=== PATIENT | female | born 1980 | race Caucasian/White ===

== ENCOUNTER 2016-12-01 08:32 | Emergency (ER) | END 2016-12-01 09:45 | disposition home or self-care (01) | DX: A60.00 Herpesviral infection of urogenital system, unspecified (principal); I10 Essential (primary) hypertension; R10.2 Pelvic and perineal pain | CPT/HCPCS: 81003; 87591; 96372; J0696; Z7502; Z7610 ==

== ENCOUNTER 2017-03-17 22:21 | Emergency (ER) | payer OTHER ==
[~2017-03-17] VITALS: Ht 167.6 cm; Wt 94.5 kg
[~2017-03-17 22:21] MED LIST: ACYC400T2 PO; AZIT500T3 PO; BACTDS PO; CEPH-443 PO; FLUC150T17 PO; IBUP-1542 PO; LORA-441 PO
[2017-03-17 22:49] VITALS: Ht 167.6 cm; Wt 94.5 kg
[2017-03-18] MEDS ORDERED: ASPIRIN 325 MG TAB PO ONE
[2017-03-18] MEDS ORDERED: LORAZEPAM 2 MG INJ IV ONE
[2017-03-18] MEDS ORDERED: SOD CHLORIDE 0.9% 1,000 ML IV STA
[2017-03-18 00:01] VITALS: TEMP 98
--- NOTE | 2017-03-18 00:14 | ERD ---
ER Documentation Chief Complaint Chief Complaint CP today sudden onset, non-radiating. +SOB. -n/v. Pt seen by PMD. see note HPI This is a 36-year-old female with multiple complaints. She states for 1 month now she has had off-and-on episodes of her hands getting numb and sweaty and she feels like her blood sugar is getting low. Symptoms resolved eating some sweets. She also states she has had off-and-on left-sided arm and leg heaviness. She says this started at 3 AM yesterday morning. Apparently this has happened multiple times in the past. The friends at bedside states they called the ambulance "all the time" to come see her and take her to the hospital. The patient states that she had some difficulty breathing at 3 AM that was brief lasting a few minutes and resolved. She has never had any chest pain. No fever no cough. Patient is denying any undue stress. ROS All systems reviewed and are negative except as per history of present illness. Medications Home Meds Reported Medications Hydrocodone/Acetaminophen ([place] 5-325 Tablet) 1 Each Tablet, 1 EACH PO, TAB 03/18/17 Losartan Potassium* (Losartan Potassium*) 100 Mg Tablet, 100 MG PO DAILY, TAB 03/18/17 Amlodipine Besylate* (Amlodipine Besylate*) 2.5 Mg Tablet, 2.5 MG PO DAILY, #30 TAB 03/18/17 Hydrochlorothiazide* (Hydrochlorothiazide*) 25 Mg Tab, 25 MG PO DAILY, #30 TAB 03/18/17 Metoprolol Tartrate* (Lopressor*) 50 Mg Tab, 50 MG PO BID for HTN, #60 TAB 03/18/17 Lorazepam* (Lorazepam*) 1 Mg Tablet, 1 MG PO Q8 Y for ANXIETY, #60 TAB 03/18/17 Discontinued Scripts Acyclovir* (Acyclovir*) 400 Mg Tablet, 400 MG PO QID for 7 Days, TAB Prov:GAVI BENAVIDES PA-C 12/01/16 Cephalexin* (Keflex*) 500 Mg Capsule, 500 MG PO QID for 5 Days, CAP Prov:SINCERE ARZATE PA-C 01/31/16 Fluconazole* (Diflucan*) 150 Mg Tablet, 150 MG PO ONCE, #1 TAB Prov:SINCERE ARZATE PA-C 01/31/16 Ibuprofen* (Motrin*) 600 Mg Tab, 600 MG PO Q8, #30 TAB Prov:MANAGUELOD,[place] P CLERICAL AIDE 12/29/15 Cephalexin* (Keflex*) 500 Mg Capsule, 500 MG PO QID for 7 Days, CAP Prov:MANAGUELOD,FLORENCE P CLERICAL AIDE 12/29/15 Sulfamethoxazole-Trimethoprim* (Bactrim* DS) 800-160 Mg Tab, 1 TAB PO BID for 10 Days, TAB Prov:MANAGUELOD,FLOR[place] P CLERICAL AIDE 12/29/15 Fluconazole* (Diflucan*) 150 Mg Tablet, 150 MG PO ONCE, #1 TAB Prov:EJ CAMPOS PA-C 11/30/15 Azithromycin* (Zithromax*) 500 Mg Tablet, 1000 MG PO ONCE, #1 TAB Prov:EJ CAMPOS PA-C 11/30/15 Lorazepam* (Ativan*) 0.5 Mg Tablet, 0.5 MG PO Q8, #15 TAB Prov:CHIQUI IRVING MD 09/23/15 Allergies Allergies: Coded Allergies: No Known Allergy (Unverified , 03/17/17) PMhx/Soc History of Surgery: No Anesthesia Reaction: No Hx Neurological Disorder: No Hx Respiratory Disorders: No Hx Cardiac Disorders: Yes (hypertension) Hx Psychiatric Problems: No Hx Miscellaneous Medical Probl: No Hx Alcohol Use: No Hx Substance Use: No Hx Tobacco Use: No Smoking Status: Never smoker FmHx Family History: No coronary disease Physical Exam Vitals Vital Signs Date Time Temp Pulse Resp B/P Pulse Ox O2 Delivery O2 Flow Rate FiO2 03/18/17 00:01 98.0 81 18 181/110 100 Room Air 03/17/17 22:49 98.1 65 18 160/100 98 Physical Exam Const: Well-developed, well-nourished Head: Atraumatic, normocephalic Eyes: Normal Conjunctiva, PERRLA, EOMI, normal sclera, no nystagmus ENT: Normal External Ears, Nose and Mouth, moist mucus membranes. Neck: Full range of motion. No meningismus, no lymphadenopathy. Resp: Clear to auscultation bilaterally, no wheezing, rhonchi, rales Cardio: Regular rate and rhythm, no murmurs, S1 S2 present Abd: Soft, non tender x 4, non distended. Normal bowel sounds, no guarding or rebound, no pulsitile abdominal masses or bruits Skin: No petechiae or rashes, no ecchymosis , no maculopapular rash Back: No midline or flank tenderness Ext: No cyanosis, or edema, FROM x 4, normal inspection, neurovascularly intact x 4 Neur: Awake and alert, STR 5/5 x 4,, patient has subjective heaviness on the left arm and leg sensation intact x 4, no focal findings, cerebellum intact Psych: Normal Mood and Affect Result Diagram: 03/17/176 03/17/172355 Results 24 hrs Laboratory Tests Test 03/17/17 23:56 03/18/17 00:04 White Blood Count 9.010^3/ul Red Blood Count 4.4810^6/ul Hemoglobin 12.8g/dl Hematocrit 38.6% Mean Corpuscular Volume 86.2fl Mean Corpuscular Hemoglobin 28.6pg Mean Corpuscular Hemoglobin Concent 33.2g/dl Red Cell Distribution Width 13.5% Platelet Count 90747^3/UL Mean Platelet Volume 10.8fl Neutrophils % 68.1% Lymphocytes % 20.1% Monocytes % 7.7% Eosinophils % 2.4% Basophils % 0.7% Nucleated Red Blood Cells % 0.0/100WBC Neutrophils # 6.110^3/ul Lymphocytes # 1.810^3/ul Monocytes # 0.710^3/ul Eosinophils # 0.210^3/ul Basophils # 0.110^3/ul Nucleated Red Blood Cells # 0.010^3/ul Prothrombin Time 12.4Sec Prothrombin Time Ratio 1.0 INR International Normalized Ratio 0.92 Activated Partial Thromboplast Time 25.3Sec Sodium Level 138mmol/L Potassium Level 3.3mmol/L Chloride Level 102mmol/L Carbon Dioxide Level 29mmol/L Anion Gap 10 Blood Urea Nitrogen 16mg/dl Creatinine 0.71mg/dl Glucose Level 95mg/dl Calcium Level 8.9mg/dl Troponin I < 0.012ng/ml Bedside Glucose 94mg/dL Current Medications Medications (Trade) Dose Ordered Sig/Grady Route PRN Reason Start Time Stop Time Status Last Admin Dose Admin Sodium Chloride (NS) 1,000 ml @ 1,000 mls/hr Q1H STAT IV 03/18/17 00:00 03/18/17 00:59 DC 03/18/17 00:06 Lorazepam (Ativan) 1 mg ONCE ONCE IV 03/18/17 00:00 03/18/17 00:02 DC 03/18/17 00:06 Aspirin (Aspirin) 325 mg ONCE ONCE PO 03/18/17 00:00 03/18/17 00:02 DC 03/18/17 00:06 Acetaminophen (Tylenol Tab) 650 mg ONCE ONCE PO 03/18/17 01:52 03/18/17 01:53 DC 03/18/17 01:54 Acetaminophen (Tylenol Tab) 325 mg STK-MED ONCE .ROUTE 03/18/17 01:52 03/18/17 01:53 DC Procedures/MDM EKG: Rate/Rhythm: Normal sinus rhythm, LVH QRS, ST, QT: NORMAL TX, QRS, QT] Impression: NORMAL EKG Chest x-ray per radiology is normal Noncontrast CT scan of brain is normal per radiology The patient states she feels back to baseline. I discussed with her her findings. She says that this is the third time this has happened to her in the past 6 weeks and it always happens when she is asleep. She says she has been to outside ERs twice for this and they give her anxiety pills and that seems to work. Patient says she is out of her anxiety pills otherwise she will taken that and not come here. Jennifer is some type of stress reaction/anxiety reaction. Departure Diagnosis: Primary Impression: Stress reaction Additional Impression: Anxiety Condition: Stable IRMA ERICKSON DO Mar 18, 2017 00:14
[2017-03-18 00:18] LABS: BASOPHIL # 0.1 10^3/ul (0.0-0.1); BASOPHILS % 0.7 % (0.0-2.0); EOSINOPHILS # 0.2 10^3/ul (0.0-0.5); EOSINOPHILS % 2.4 % (0.0-7.0); HEMATOCRIT 38.6 % (37.0-47.0); HEMOGLOBIN 12.8 g/dl (12.0-16.0); LYMPHOCYTES # 1.8 10^3/ul (0.8-2.9); LYMPHOCYTES % 20.1 % (15.0-51.0); MEAN CORPUSCULAR HEMOGLOBIN 28.6 pg (29.0-33.0); MEAN CORPUSCULAR HGB CONC 33.2 g/dl (32.0-37.0); MEAN CORPUSCULAR VOLUME 86.2 fl (82.0-101.0); MEAN PLATELET VOLUME 10.8 fl (7.4-10.4); MONOCYTE # 0.7 10^3/ul (0.3-0.9); MONOCYTES % 7.7 % (0.0-11.0); NEUTROPHIL # 6.1 10^3/ul (1.6-7.5); NEUTROPHILS % 68.1 % (39.0-77.0); PLATELET COUNT 233 10^3/UL (140-415); RED BLOOD COUNT 4.48 10^6/ul (4.20-5.40); RED CELL DISTRIBUTION WIDTH 13.5 % (11.5-14.5)
[2017-03-18 00:43] LABS: ANION GAP 10 (8-16); BLOOD UREA NITROGEN 16 mg/dl (7-20); CALCIUM 8.9 mg/dl (8.4-10.2); CARBON DIOXIDE 29 mmol/L (21-31); CHLORIDE 102 mmol/L (97-110); CREATININE 0.71 mg/dl (0.44-1.00); GLUCOSE 95 mg/dl (70-220); POTASSIUM 3.3 mmol/L (3.5-5.1); SODIUM 138 mmol/L (135-144)
[2017-03-18 01:01] LABS: INR 0.92; PARTIAL THROMBOPLASTIN TIME 25.3 Sec (25.0-35.0); PROTIME 12.4 Sec (12.2-14.2)
[2017-03-18 01:04] LABS: TROPONIN-I < 0.012 ng/ml (0.00-0.12)
[2017-03-18] MEDS ORDERED: AMLO2.5T78 PO (01:06)
[2017-03-18] MEDS ORDERED: LOSA100T7 PO (01:06)
[2017-03-18] MEDS ORDERED: HYDR25TA6 PO (01:06)
[2017-03-18] MEDS ORDERED: METO-429 PO (01:06)
[2017-03-18] MEDS ORDERED: LORA1TAB PO ×2 (01:06→03:59)
[2017-03-18] MEDS ORDERED: HYDR-906 PO (01:06)
[2017-03-18] MEDS ORDERED: ACETAMINOPHEN 325 MG TAB PO ONE (01:52)
[2017-03-18] MEDS ORDERED: ACETAMINOPHEN 325 MG TAB ONE (01:52)
[2017-03-18 04:00] VITALS: BP 149/100; PULSE 62; RESP 18
--- NOTE | 2017-03-18 08:38 | RADRPT ---
PROCEDURE: XR Chest. CLINICAL INDICATION: Headache. TECHNIQUE: Single frontal view of the chest. COMPARISON: 09/23/2015. FINDINGS: The cardiomediastinal silhouette is within normal limits. The lungs are clear. No signs of pleural f luid or pneumothorax are seen. The osseous structures and soft tissues are unremarkable. IMPRESSION: No evidence for active cardiopulmonary disease. RPTAT: [facility]U Physician Du Date Time Electronically viewed and signed by Miquel Jones Physician on 03/18/2017 01:32 RS/
--- NOTE | 2017-03-18 08:39 | RADRPT ---
PROCEDURE: CT Brain without contrast. CLINICAL INDICATION: Headache TECHNIQUE: A CT of the brain was performed utilizing axial imaging from the skull base through the vertex without IV contrast. Multiplanar reformatted images were made. Images were reviewed on a [employer] workstation. The CTDIvol is 44.4 mGy and the DLP is 720.23 mGycm. One or more the following dose reduction techniques were utilized: Automated exposure control, adjus tment of the mA and / or kV according to patient's size, or use of iterative reconstruction techniqu e. COMPARISON: None FINDINGS: There is no intracranial hemorrhage, mass effect, or midline shift. No extra-axial fluid collection is seen. The ventricles and sulci are normal in size and configuration. The density of the brain is normal, and the saul white matter differentiation appears well-preserved. No skull fracture seen. There is appearance of a 7 mm retention cyst in posterior right sphenoid sinus. IMPRESSION: 1. No evidence of acute intracranial pathology. 2. The brain is normal in appearance. RPTAT: HJES .Laureano Villegas MD, Date Time Electronically viewed and signed by .Laureano Villegas MD, on 03/18/2017 02:45 .S/
== END 2017-03-18 04:10 | disposition home or self-care (01) ==
LOC: E/R 22:21
DX: F43.0 Acute stress reaction (principal); I10 Essential (primary) hypertension; R51 Headache
CPT/HCPCS: 36415; 70450; 71010; 80048; 82962; 84484; 85025; 85610; 85730; 93005; 96374; J2060; J7030; Z7502; Z7610

== ENCOUNTER 2018-12-29 07:43 | Day surgery (SDC) | payer OTHER ==
[2018-12-29] VITALS (19 sets, daily range): BP systolic 131–159; BP diastolic 74–100; PULSE 62–76; RESP 15–20; Ht 170.2 cm; Wt 97.7 kg
[~2018-12-29] VITALS: Ht 170.2 cm; Wt 97.7 kg
[~2018-12-29 07:43] MED LIST changes: -ACYC400T2 PO; +AMLO-145 ORAL; +AMLO2.5T78 PO; -AZIT500T3 PO; -BACTDS PO; -CEPH-443 PO; +DOCU-144 PO; -FLUC150T17 PO; +FLUO20CA22 ORAL; +HYDR-4011 PO; +HYDR25TA6 PO; -IBUP-1542 PO; -LORA-441 PO; +LORA0.5T ORAL; +LORA1TAB PO; +LOSA100T15 PO; +METO-429 PO; +ONDA8TAB9 PO; +SENN-120 PO; +TRAZ-150 ORAL
[2018-12-29] MEDS ORDERED: CEFAZOLIN 2 GM/50 ML (PMX) 50 ML IVPB ONE (09:30)
[2018-12-29] MEDS ORDERED: SOD CHLORIDE 0.9% 1,000 ML IV SCH (09:30)
--- NOTE | 2018-12-29 10:40 | PREAC ---
Date/Time of Note Date/Time of Note DATE: 12/29/18 TIME: 10:39 Anesthesia Eval and Record Evaluation Time Pre-Procedure Interview DATE: 12/29/18 TIME: 10:39 Age 38 Sex female NPO: 8 hrs Preoperative diagnosis gallstones Planned procedure lap choly Past Medical History Past Medical History: Includes Cardio: HTN GI: Obesity Psych: Anxiety Surgery & Anesthesia Issues No known issue Meds Anticoagulation: No Beta Lauren within 24 hr: No Reason Beta Lauren not given: Pt. not on B-Lauren Reported Medications Trazodone Hcl* (Desyrel*) 100 Mg Tab, 150 MG ORAL QHS 12/29/18 Fluoxetine Hcl* (Fluoxetine Hcl*) 20 Mg Capsule, 1 CAP ORAL DAILY 12/29/18 Lorazepam* (Lorazepam*) 0.5 Mg Tablet, 1 TAB ORAL QHS PRN for ANXIETY 12/29/18 Amlodipine Besylate* (Amlodipine Besylate*) 5 Mg Tablet, 1 TAB ORAL DAILY 12/29/18 Losartan Potassium* (Losartan Potassium*) 100 Mg Tablet, 100 MG PO DAILY, TAB 03/18/17 Hydrochlorothiazide* (Hydrochlorothiazide*) 25 Mg Tab, 25 MG PO DAILY, #30 TAB 03/18/17 Metoprolol Tartrate* (Lopressor*) 50 Mg Tab, 50 MG PO BID for HTN, #60 TAB 03/18/17 Discontinued Reported Medications Hydrocodone/Acetaminophen ([place] 5-325 Tablet) 1 Each Tablet, 1 EACH PO, TAB 03/18/17 Amlodipine Besylate* (Amlodipine Besylate*) 2.5 Mg Tablet, 2.5 MG PO DAILY, #30 TAB 03/18/17 Lorazepam* (Lorazepam*) 1 Mg Tablet, 1 MG PO Q8 PRN for ANXIETY, #60 TAB 03/18/17 Discontinued Scripts Lorazepam* (Lorazepam*) 1 Mg Tablet, 1 MG PO Q8H PRN for ANXIETY, #10 TAB Prov:IRMA ERICKSON DO 03/18/17 Current Medications Sodium Chloride 1,000 ml @ 75 mls/hr [id number] IV Last administered on 12/29/18at 09:39; Admin Dose 75 MLS/HR; Start 12/29/18 at 09:30; Stop 12/29/18 at 22:49 Meds reviewed: Yes Allergies Coded Allergies: No Known Allergy (Unverified , 12/29/18) Allergies Reviewed: Yes Labs/Studies Labs Reviewed: Reviewed by anesthesiologist Result Diagram: 12/29/18 0845 12/29/18 0845 Laboratory Tests 12/29/18 08:45 test: N/A Pre-procedure Exam Last vitals Vital Signs Date Temp Pulse Resp B/P (MAP) Pulse Ox O2 O2 Flow FiO2 Time Delivery Rate 12/29/18 97.7 66 16 135/93 100 Room Air 09:14 (107) Airway: Adequate mouth opening, Adequate thyromental dist Mallampati: Mallampati IV Teeth: Normal Lung: Normal Heart: Normal ASA Physical Status ASA physical status: 2 Emergency: None Pre-operative Attestations Prior to commencing anesthesia and surgery, the patient was re-evaluated, there was verification of: *The patient's identity *The results of appropriate recent lab work and preoperative vital signs *The above evaluation not changing prior to induction *Anesthetic plan, risk benefits, alternative and complications discussed with patient/family; questions answered; patient/family understands, accepts and wishes to proceed. MARIAN LANDA DO Dec 29, 2018 10:40
[2018-12-29] MEDS ORDERED: LIDOCAINE 2% (SDV) 5 ML INJ ONE (10:54)
[2018-12-29] MEDS ORDERED: PROPOFOL 20 ML ONE (10:54)
[2018-12-29] MEDS ORDERED: ROCURONIUM 50 MG INJ ONE (10:54)
[2018-12-29] MEDS ORDERED: MIDAZOLAM 1 MG/ML 2 ML INJ ONE (10:55)
[2018-12-29] MEDS ORDERED: ROPIVACAINE 0.5 % 30 ML VIAL ONE (10:58)
[2018-12-29] MEDS ORDERED: HYDROmorphONE 1 MG/5 ML IV SYRINGE IV PRN ×2 (11:00)
[2018-12-29] MEDS ORDERED: hydrALAzine 20 MG INJ IV PRN (11:00)
[2018-12-29] MEDS ORDERED: OXYCODONE/ACETAMINOPHEN (5/325) TAB PO PRN ×2 (11:00)
[2018-12-29] MEDS ORDERED: ONDANSETRON 4 MG INJ IV PRN (11:00)
[2018-12-29] MEDS ORDERED: LABETALOL HCL 20MG INJ IV PRN (11:00)
--- NOTE | 2018-12-29 11:17 | RADRPT ---
Vent Rate: 61 bpm RR Interval: 976 msec MO Interval: 184 msec QRS Duration: 103 msec QT Interval: 468 msec QTC Interval: 474 msec P-R-T [place]: 17 - 18 - 32 degrees Sinus rhythm...normal P axis, V-rate 50- 99 Probable left ventricular hypertrophy...multiple LVH criteria Electronically Signed By: Long Grimes
[2018-12-29] MEDS ORDERED: ONDANSETRON 4 MG INJ ONE (11:24)
[2018-12-29] MEDS ORDERED: CEFAZOLIN 1 GM INJ ONE (11:24)
[2018-12-29] MEDS ORDERED: SUGAMMADEX SODIUM 200 MG/2 ML VIAL IV ONE (12:00)
[2018-12-29] MEDS ORDERED: HYDROCODONE/APAP (5/325) TAB PO ONE (12:00)
--- NOTE | 2018-12-29 12:04 | OPR ---
Date/Time of Note Date/Time of Note DATE: 12/29/18 TIME: 12:01 Operative Report Procedure Date: Dec 29, 2018 Preoperative Diagnosis symptomatic gallstones Postoperative Diagnosis same Operation/Procedure Performed laparoscopic cholecystectomy Surgeon see signature line Gate Watchman none Anesthesia Type: general Estimated Blood Loss: 0 - 10 ml's Transfusion none Specimen gallbladder Grafts/Implants none Complications none Pt Condition Post Procedure: stable Indications This is a 38-year-old female with some tender gallstones. She required surgical excision of her gallbladder. Risks alternatives benefits and personal were discussed the patient. Patient expressed understanding and consents to the operation. Procedure Description Patient is taken to the OR and prepped and draped in usual sterile fashion. Surgical time was performed. IV antibiotics given. Infraumbilical transverse incision was made with a 15 blade. Dissection with cautery skin onto the fascia. The fascia was grasped with [place]'s and divided with curved Rojas scissors. 0 Vicryl use this was placed into the fascia. Dahl trocar was introduced. Pneumoperitoneum was established. Midepigastric 12 mm optical trocar was placed under direct visualization. Right upper quadrant upper flank 5 mm optical trochars were placed under direct visualization. Upon initial inspection there is adhesions to the gallbladder. The gallbladder is grasped with the fundus and retracted and lateral cephalad direction. [place] graspers used to dissect out the cystic duct and cystic artery. The critical view was established. The cystic duct was divided to close proximal to distal and the division was performed lap scopic scissors. Cystic artery divided to close proximal clip distal and the division is performed lap scopic scissors. The gallbladder was taken of the gallbladder bed. Good hemostasis established. The gallbladder is retrieved Endo Catch bag. All ports removed under direct visualization. 0 Vicryl sutures tied down. Skin is closed and skin maggy. A tap block was provided by the anesthesiologist at the beginning the case. Dry dressings were applied. Dane HERNANDEZ Dec 29, 2018 12:04
--- NOTE | 2018-12-29 12:16 | PAC ---
Date/Time of Note Date/Time of Note DATE: 12/29/18 TIME: 12:16 Post-Anesthesia Notes Post-Anesthesia Note Last documented vital signs Vital Signs Date Temp Pulse Resp B/P (MAP) Pulse Ox O2 O2 Flow FiO2 Time Delivery Rate 12/29/18 66 16 135/93 100 Room Air (107) Activity: WNL Respiratory function: WNL Cardiovascular function: WNL Mental status: Baseline Pain reasonably controlled: Yes Hydration appropriate: Yes Nausea/Vomiting absent: Yes MARIAN LANDA DO Dec 29, 2018 12:16
[2018-12-29] MEDS: HYDROmorphONE 1 MG/5 ML IV SYRINGE IV PRN ×2 (12:43→12:52)
[2018-12-29] MEDS ORDERED: MEPERIDINE 25 MG INJ ONE (13:04)
[2018-12-29] MEDS: FENTAnyl 50 MCG/ML VIAL IV PRN ×2 (13:29→13:39)
[2018-12-29] MEDS ORDERED: MEPERIDINE 25 MG INJ IV PRN (13:30)
[2018-12-29] MEDS ORDERED: FENTAnyl 50 MCG/ML VIAL IV PRN ×2 (13:30)
== END 2018-12-29 14:36 | disposition home or self-care (01) ==
LOC: SDS 07:43
PROVIDERS: ATTEND Surgery
DX: K80.10 Calculus of gallbladder with chronic cholecystitis without obstruction (principal); I10 Essential (primary) hypertension; F41.9 Anxiety disorder, unspecified; E66.9 Obesity, unspecified
CPT/HCPCS: 47562; 71045; 80053; 85025; 85610; 85730; 88304; 93005; J0690; J1170; J2175; J2250; J2405; J2795; J3010; Z7512; Z7610

== ENCOUNTER 2019-01-01 14:20 | Inpatient (IN) | payer OTHER ==
[~2019-01-01] VITALS: Ht 170.2 cm; Wt 79.0 kg
[~2019-01-01 14:20] MED LIST changes: -AMLO2.5T78 PO; -HYDR-4011 PO; -LORA1TAB PO
[2019-01-01] MEDS ORDERED: ACETAMINOPHEN 325 MG TAB PO PRN (15:00)
[2019-01-01] MEDS ORDERED: ONDANSETRON 4 MG INJ IV PRN (15:00)
--- NOTE | 2019-01-01 15:31 | HP ---
Date/Time of Note Date/Time of Note DATE: 01/01/19 TIME: 15:29 Assessment/Plan VTE Prophylaxis Pharmacological prophylaxis: NA/contraindicated Pharm contraindication: surgical contra Assessment/Plan Hospital Course 38-year-old female with comorbidities including hypertension and anxiety disorder with recent elective cholecystectomy on 12/29/2018 at [facility] who went to an outside emergency room with complaints of abdominal pain and inability to have bowel movement with evidence of underlying small bowel obstruction, who will be admitted to inpatient setting for further treatment and evaluation. 1. Abdominal pain with inability to move bowels in a patient with recent elective cholecystectomy. CT suggesting SBO. NGT decompression. Empiric antimicrobials as per general surgery recommendations. General surgery consult. Pain control. N.p.o. IV fluids. 2. Essential hypertension. PRN antihypertensives for high blood pressure readings. 3. Anxiety. Continue PRN anxiolytics. Plan: The patient will be admitted to inpatient medical surgical floor. The patient will be kept n.p.o. The patient will be started on DVT prophylaxis. The patient will remain a full code. Activities will be as tolerated. The rest of the patient's management will be based on the clinical course, inputs from consultants, and the results of diagnostic studies. Based on the patient's clinical presentation, she most probably requires at least 2 midnights' stay for further management and evaluation of her clinical presentation. The patient was seen in collaboration with Dr. Shea. HPI/ROS Admit Date/Time Admit Date/Time Hx of Present Illness Reason for admission: Abdominal pain. Consult Dr. Max Jacobson MD, General Surgery. This is a 38-year-old female with past medical history of hypertension and anxiety disorder. The patient had an elective laparoscopic cholecystectomy done on 12/29/2018 at [facility] because of symptomatic cholelithia sis. The patient was discharged home. The patient has been having abdominal pain and has not had any bowel movements since she was released from [facility] on 12/29/2018. The patient went to [facility] emergency room twice because of her abdominal pain. On her latest visit to [facility] ER, the patient was diagnosed with small bowel obstruction. There fore, the patient was transferred to [facility] for further evaluation and management because of insurance reasons and the patient's surgeon has privileges at [facility]. The patient was complaining of nausea with 2 episodes of nonbilious vomiting. The patient was able to pass gas on 12/31/2089 with some relief. The patient verbalized severe pain in the abdomen right last 03/02. The patient denied any fevers or chills. She verbalized that she has been using [place] with minimal pain relief. She also used oral pain medications provided by [facility] ER with minimal relief. The patient also verbalized that morphine given at [facility] was giving minimal relief. Dilaudid that was given at [facility] gave some relief from her pain. The patient also relayed that she was told that as she has a urinary tract infection at the [facility] ER. The patient denied any dysuria, frequency, urgency, or hematuria. Urinalysis from the transferring facility showed WBC of 4-10. ROS Constitutional: nausea, poor po Eyes: no complaints ENT: no complaints Respiratory: no complaints Cardiovascular: no complaints Gastrointestinal: pain, constipation, nausea, vomiting Genitourinary: flank pain Musculoskeletal: back pain Skin: no complaints Neurologic: no complaints Endocrine: no complaints Lymphatic: no complaints Psychological: no complaints Immunologic: no complaints PMH/Family/Social Past Medical History 1. Hypertension. 2. Anxiety. Medications Current Medications Ondansetron HCl (Zofran Inj) 4 mg BRIDGE ORDER PRN IV NAUSEA/VOMITING; Start 01/01/19 at 15:00; Stop 01/02/19 at 14:59 Acetaminophen (Tylenol Tab) 650 mg ER BRIDGE PRN PO .MILD PAIN 1-3 OR TEMP; Start 01/01/19 at 15:00; Stop 01/02/19 at 14:59 Coded Allergies: No Known Allergy (Unverified , 01/01/19) Past Surgical History Past Surgical Hx: cholecystectomy Social History Alcohol Use: none Smoking Status: Never smoker Drug Use: none Exam/Review of Systems Vital Signs Vitals Vital Signs Date Temp Pulse Resp B/P (MAP) Pulse Ox O2 O2 Flow FiO2 Time Delivery Rate 01/01/19 98.5 85 18 135/102 98 14:35 (113) Exam Exam General: 38 year-old female lying in bed in no apparent distress. HEENT: Normocephalic, atraumatic. Eyes: Anicteric sclerae, conjunctivae clear. ENT: Nasal septum midline. NGT in place. oral mucosa is dry. Neck supple, no JVD noticed. Respiratory: Bilaterally clear breath sounds. No use of accessory muscles of respiration. No adventitious breath sounds. Cardiovascular: S1, S2 heard. Regular rate and rhythm. Abdomen: Diffuse tenderness. Bowel sounds positive in all 4 quadrants. Genitourinary: Deferred. Extremities: No cyanosis, no clubbing, no edema. Peripheral pulses palpable. Neurologic: Cranial nerves II through XII grossly intact. The patient is awake, alert, and oriented. Skin: Normal skin turgor. No skin rashes. Additional Comments CT Scan of the Abdomen and Pelvis Impression: 1. Dilatation of one loop of small bowel in the right midabdomen up to 3.8 cm, with 2 adjacent points of narrowing. These findings are concerning for early small bowel obstruction and closed-loop obstruction could be considered. 2. Postsurgical changes of cholecystectomy with interval slight increase in size of intraperitoneal fluid collection containing gas including fluid in the perihepatic region, gallbladder fossa, and interspersed between loops of bowel in the right peritoneal cavity. These findings are concerning for a postoperative bile leak. CHICO DAMIAN NP Jan 01, 2019 15:31
--- NOTE | 2019-01-01 15:37 | ERD ---
ER Documentation Chief Complaint Chief Complaint SURGICAL SITE PAIN AND ABD PAIN S/P LAP CHOLEY 3 DAYS AGO. FROM [facility] HPI This is a 38-year-old female with a past medical history of hypertension, anxiety, recent cholecystectomy 3 days ago who is presenting from [facility] with concerns of a small bowel obstruction. The patient has not had a bowel movement since her surgery. She feels that her abdomen is bloated and endorses generalized cramping discomfort. She endorses associated nausea. She was seen at [facility] and was reportedly diagnosed with a small bowel obstruction. The patient was accepted for transfer by Dr. Shea and was meant to be a direct admission. However, we did not have any [facility] beds upstairs, so the patient was transferred to the emergency department pending admission. Dr. Shea is aware of the patient. An NG tube was placed at the outside hospital. The patient denies fever or chills. The patient has had no headache or vision changes. The patient does not endorse neck or back pain. The patient denies lightheadedness or dizziness. The patient has had no chest pain or trouble breathing. The patient denies changes to urination. The patient has had no focal deficits. The patient has had no weakness or numbness or tingling to the face or extremities. ROS All systems reviewed and are negative except as per history of present illness. Medications Home Meds Reported Medications Trazodone Hcl* (Desyrel*) 100 Mg Tab, 150 MG ORAL QHS 12/29/18 Fluoxetine Hcl* (Fluoxetine Hcl*) 20 Mg Capsule, 1 CAP ORAL DAILY 12/29/18 Lorazepam* (Lorazepam*) 0.5 Mg Tablet, 1 TAB ORAL QHS PRN for ANXIETY 12/29/18 Amlodipine Besylate* (Amlodipine Besylate*) 5 Mg Tablet, 1 TAB ORAL DAILY 12/29/18 Losartan Potassium* (Losartan Potassium*) 100 Mg Tablet, 100 MG PO DAILY, TAB 03/18/17 Hydrochlorothiazide* (Hydrochlorothiazide*) 25 Mg Tab, 25 MG PO DAILY, #30 TAB 03/18/17 Metoprolol Tartrate* (Lopressor*) 50 Mg Tab, 50 MG PO BID for HTN, #60 TAB 03/18/17 Discontinued Reported Medications Hydrocodone/Acetaminophen (Thornton 5-325 Tablet) 1 Each Tablet, 1 EACH PO, TAB 03/18/17 Amlodipine Besylate* (Amlodipine Besylate*) 2.5 Mg Tablet, 2.5 MG PO DAILY, #30 TAB 03/18/17 Lorazepam* (Lorazepam*) 1 Mg Tablet, 1 MG PO Q8 PRN for ANXIETY, #60 TAB 03/18/17 Discontinued Scripts Lorazepam* (Lorazepam*) 1 Mg Tablet, 1 MG PO Q8H PRN for ANXIETY, #10 TAB Prov:IRMA ERICKSON DO 03/18/17 Allergies Allergies: Coded Allergies: No Known Allergy (Unverified , 01/01/19) PMhx/Soc History of Surgery: No Anesthesia Reaction: No Hx Neurological Disorder: No Hx Respiratory Disorders: No Hx Cardiac Disorders: No Hx Psychiatric Problems: Yes (anxiety) Hx Miscellaneous Medical Probl: No Hx Alcohol Use: Yes (social) Hx Substance Use: No Hx Tobacco Use: No (5 month ago) FmHx Family History: No diabetes Physical Exam Vitals Vital Signs Date Temp Pulse Resp B/P (MAP) Pulse Ox O2 O2 Flow FiO2 Time Delivery Rate 01/01/19 98.5 85 18 135/102 98 14:35 (113) Physical Exam Const: No acute distress Head: Atraumatic Eyes: Normal Conjunctiva ENT: Normal External Ears, Nose and Mouth. NG tube in place. Neck: Full range of motion. No meningismus. Resp: Clear to auscultation bilaterally Cardio: Regular rate and rhythm, no murmurs Abd: Mild distention. General discomfort with no exquisite tenderness. Healing surgical scars with maggy in place without erythema or induration or purulence or fluctuance around each site. Normal bowel sounds Skin: No petechiae or rashes Back: No midline or flank tenderness Ext: No cyanosis, or edema Neur: Awake and alert Psych: Normal Mood and Affect Results 24 hrs Current Medications Medications Dose Sig/Grady Start Time Status Last (Trade) Ordered Route PRN Stop Time Admin Dose Reason Admin Ondansetron 4 mg BRIDGE ORDER 01/01/19 HCl (Zofran PRN IV 15:00 Inj) NAUSEA/VOMITI 01/02/19 14:59 NG 650 mg ER BRIDGE 01/01/19 Acetaminophen PRN PO 15:00 (Tylenol .MILD PAIN 01/02/19 14:59 Tab) 1-3 OR TEMP Procedures/MDM MDM Previous medical records, if available, were reviewed. LABS The patient's laboratory testing was reviewed from the outside hospital. No emergent treatment was required unless described below. CBC: Microcytic anemia, not emergent. No E/o systemic infection or thrombocytopenia Chemistry: No E/o severe acidosis or alkalosis or renal failure or liver disease or diabetic ketoacidosis Lipase: No E/o pancreatitis Urine: E/o acute infection without hematuria IMAGING Radiology interpretation reviewed from outside hospital CT abdomen pelvis with contrast 1. Dilation of one loop of small bowel in the right mid abdomen up to 3.8 cm with 2 adjacent points of narrowing. These findings are concerning for early small bowel obstruction and closed-loop obstruction could be considered. 2. Postsurgical changes of cholecystectomy with interval slight increase in size of intraperitoneal fluid collection containing gas including fluid in the perihepatic region, gallbladder fossa, and interspersed between loops of bowel in the right peritoneal cavity. These findings are concerning for a postoperative bile leak. TREATMENT/DISPOSITION The patient presents for postoperative complication of a possible small bowel obstruction and a possible postoperative bile leak after a cholecystectomy performed 3 days ago. Surgery was performed by Dr. Wright, who was called and is aware of the patient's arrival. He recommended that the NG tube be placed inte rmittent suction. He recommended that Unasyn and Flagyl be initiated in the hospital. Dr. Shea is aware of the patient. The panel team will put in orders for further management. The patient is not septic and does not require a full septic work-up. ADMISSION At this time, I feel that the patient requires admission for further evaluation and management. The patient will be admitted to Panel in accordance with the patient's insurance. The patient was accepted by Dr. Shea to Med Surg. DISCLAIMER Inadvertent spelling and grammatical errors are likely due to EHR/dictation software use and do not reflect on the overall quality of patient care. Note that the electronic time recorded on this note does not necessarily reflect the actual time of the patient encounter. Departure Diagnosis: Primary Impression: Small bowel obstruction Additional Impressions: Bile leak, postoperative Postoperative complication Surgical complication system/body Area: digestive system Surgical complication type: intestinal obstruction Intestinal obstruction extent: unspecified extent Qualified Codes: K91.30 - Postprocedural intestinal obstruction, unspecified as to partial versus complete Status post cholecystectomy Urinary tract infection Urinary tract infection type: acute cystitis Hematuria presence: without hematuria Qualified Codes: N30.00 - Acute cystitis without hematuria Microcytic anemia Condition: Serious EMMIE KYLE MD Jan 01, 2019 15:35
[2019-01-01] MEDS: HYDROmorphONE 0.5 MG/0.5 ML SYG IV PRN ×2 (15:49→21:45)
[2019-01-01] MEDS: ONDANSETRON 4 MG INJ IV PRN (15:49)
[2019-01-01] MEDS: SOD CHLORIDE 0.9% 1,000 ML IV SCH (15:50)
[2019-01-01] MEDS ORDERED: hydrALAzine 20 MG INJ IV PRN (16:00)
[2019-01-01] MEDS ORDERED: NACL 0.9% 3 ML SYG IV SCH (16:00)
[2019-01-01] MEDS ORDERED: LORAZEPAM 2 MG INJ IV PRN (16:00)
[2019-01-01 16:49] VITALS: BP 152/88; PULSE 87; RESP 20
[2019-01-01 17:01] VITALS: Ht 170.2 cm; Wt 79.0 kg
[2019-01-01] MEDS: AMPICILLIN/SULB 3 GM/NS (PMX) 100 ML IVPB SCH ×2 (18:18→23:41)
[2019-01-01 18:19] VITALS: BP 139/84; PULSE 86
[2019-01-01 19:47] VITALS: BP 134/78; PULSE 84; RESP 20
[2019-01-01] MEDS: metroNIDAZOLE 500 MG/NS (PMX) 100 ML IVPB SCH (22:01)
[2019-01-02] MEDS: SOD CHLORIDE 0.9% 1,000 ML IV SCH ×3 (01:31→21:12)
[2019-01-02 02:15] VITALS: BP 126/79; PULSE 79; RESP 20
[2019-01-02] MEDS: HYDROmorphONE 0.5 MG/0.5 ML SYG IV PRN ×2 (02:23→06:52)
[2019-01-02] MEDS: ONDANSETRON 4 MG INJ IV PRN ×2 (02:30→10:48)
[2019-01-02] MEDS: metroNIDAZOLE 500 MG/NS (PMX) 100 ML IVPB SCH ×3 (05:27→21:20)
[2019-01-02] MEDS: AMPICILLIN/SULB 3 GM/NS (PMX) 100 ML IVPB SCH ×3 (06:52→17:56)
[2019-01-02 08:11] VITALS: BP 130/80; PULSE 80; RESP 17
[2019-01-02] MEDS ORDERED: POLYETHYLENE GLYCOL 17 GM PACKET PO PRN (10:00)
--- NOTE | 2019-01-02 10:31 | PN ---
Date/Time of Note Date/Time of Note DATE: 01/02/19 TIME: 10:28 Assessment/Plan VTE Prophylaxis Risk score (from Ns)>0 risk: 0 SCD applied (from Ns): No SCD contraindicated: low risk/ambulating Pharmacological prophylaxis: NA/contraindicated Pharm contraindication: low risk/ambulating Lines/Catheters IV Catheter Type (from Nrs): Peripheral IV Assessment/Plan Hospital Course Assessment and plan #Abdominal pain CT scan suggesting SBO Patient seen with NG tube in place DC NG tube per surgeon recommendations Advance diet as tolerated status post NG tube removal Continue IV fluids Continue analgesics #Essential hypertension Will provide with antihypertensives as needed #Anxiety Continue with anxiolytics as needed Disposition and plan. DC NG tube per surgery. Bowel sounds normoactive during physical assessment. Follow-up with surgery recommendations. Plan to advance diet once NG tube removed. Further recommendations pending clinical course. Discussed POC with Dr. Campos Result Diagram: 01/02/19 0457 01/02/19 0457 Results 24hrs Laboratory Tests Test 01/01/19 16:17 01/02/19 04:57 White Blood Count 9.1 # 7.6 Red Blood Count 4.10 L 3.86 L Hemoglobin 10.7 L 10.0 L Hematocrit 34.2 L 32.4 L Mean Corpuscular Volume 83.4 83.9 Mean Corpuscular Hemoglobin 26.1 L 25.9 L Mean Corpuscular Hemoglobin Concent 31.3 L 30.9 L Red Cell Distribution Width 15.5 H 15.5 H Platelet Count 235 235 Mean Platelet Volume 10.4 10.9 H Immature Granulocytes % 0.400 0.500 H Neutrophils % 80.3 H 77.1 H Lymphocytes % 11.1 L 12.2 L Monocytes % 6.9 8.2 Eosinophils % 0.9 1.7 Basophils % 0.4 0.3 Nucleated Red Blood Cells % 0.0 0.0 Immature Granulocytes # 0.040 H 0.040 H Neutrophils # 7.3 5.8 Lymphocytes # 1.0 0.9 Monocytes # 0.6 0.6 Eosinophils # 0.1 0.1 Basophils # 0.0 0.0 Nucleated Red Blood Cells # 0.0 0.0 Sodium Level 136 137 Potassium Level 3.8 3.7 Chloride Level 98 99 Carbon Dioxide Level 31 32 H Anion Gap 7 6 Blood Urea Nitrogen 6 L 9 Creatinine 0.64 0.59 Est Glomerular Filtrat Rate mL/min > 60 > 60 Glucose Level 109 103 Hemoglobin A1c 5.9 Lactic Acid Level 1.1 1.0 Calcium Level 8.6 8.2 L Phosphorus Level 3.6 3.9 Magnesium Level 2.0 2.1 Total Bilirubin 0.8 0.7 Direct Bilirubin 0.00 0.00 Indirect Bilirubin 0.8 0.7 Aspartate Amino Transf (AST/SGOT) 39 32 Alanine Aminotransferase (ALT/SGPT) 78 H 65 Alkaline Phosphatase 74 77 Total Protein 7.3 6.6 Albumin 3.9 3.4 Globulin 3.40 H 3.20 Albumin/Globulin Ratio 1.14 1.06 Serum HCG, Qualitative NEGATIVE Prothrombin Time 13.8 Prothrombin Time Ratio 1.1 INR International Normalized Ratio 1.05 Activated Partial Thromboplast Time 27.2 Subjective 24 Hr Interval Summary Free Text/Dictation Patient with less abdominal pain. Reports she has not been able to pass gas yet. NG tube seen in place. Exam/Review of Systems Exam Vitals Vital Signs Date Temp Pulse Resp B/P (MAP) Pulse Ox O2 O2 Flow FiO2 Time Delivery Rate 01/02/19 98.4 80 17 130/80 98 08:11 (97) 01/02/19 Room Air 02:15 Intake and Output 01/01/19 01/01/19 01/02/19 1515:00 23:00 07:00 IntakeIntake Total 300 ml 1100 ml OutputOutput Total 80 ml 420 ml BalanceBalance 220 ml 680 ml Constitutional: alert, oriented Psych: nl mood/affect Head: normocephalic Eyes: nl conjunctiva ENMT: nl external ears & nose, nl lips & teeth Neck: supple Respiratory: clear to auscultation Cardiovascular: other (regular rate ) Gastrointestinal: other (NG tube in place ) Neurological: E[employer] PROJECT MANAGER II-XII intact, nl mental status, nl speech Results Results 24hrs Laboratory Tests Test 01/01/19 16:17 01/02/19 04:57 White Blood Count 9.1 # 7.6 Red Blood Count 4.10 L 3.86 L Hemoglobin 10.7 L 10.0 L Hematocrit 34.2 L 32.4 L Mean Corpuscular Volume 83.4 83.9 Mean Corpuscular Hemoglobin 26.1 L 25.9 L Mean Corpuscular Hemoglobin Concent 31.3 L 30.9 L Red Cell Distribution Width 15.5 H 15.5 H Platelet Count 235 235 Mean Platelet Volume 10.4 10.9 H Immature Granulocytes % 0.400 0.500 H Neutrophils % 80.3 H 77.1 H Lymphocytes % 11.1 L 12.2 L Monocytes % 6.9 8.2 Eosinophils % 0.9 1.7 Basophils % 0.4 0.3 Nucleated Red Blood Cells % 0.0 0.0 Immature Granulocytes # 0.040 H 0.040 H Neutrophils # 7.3 5.8 Lymphocytes # 1.0 0.9 Monocytes # 0.6 0.6 Eosinophils # 0.1 0.1 Basophils # 0.0 0.0 Nucleated Red Blood Cells # 0.0 0.0 Sodium Level 136 137 Potassium Level 3.8 3.7 Chloride Level 98 99 Carbon Dioxide Level 31 32 H Anion Gap 7 6 Blood Urea Nitrogen 6 L 9 Creatinine 0.64 0.59 Est Glomerular Filtrat Rate mL/min > 60 > 60 Glucose Level 109 103 Hemoglobin A1c 5.9 Lactic Acid Level 1.1 1.0 Calcium Level 8.6 8.2 L Phosphorus Level 3.6 3.9 Magnesium Level 2.0 2.1 Total Bilirubin 0.8 0.7 Direct Bilirubin 0.00 0.00 Indirect Bilirubin 0.8 0.7 Aspartate Amino Transf (AST/SGOT) 39 32 Alanine Aminotransferase (ALT/SGPT) 78 H 65 Alkaline Phosphatase 74 77 Total Protein 7.3 6.6 Albumin 3.9 3.4 Globulin 3.40 H 3.20 Albumin/Globulin Ratio 1.14 1.06 Serum HCG, Qualitative NEGATIVE Prothrombin Time 13.8 Prothrombin Time Ratio 1.1 INR International Normalized Ratio 1.05 Activated Partial Thromboplast Time 27.2 Medications Medication Current Medications Acetaminophen (Tylenol Tab) 650 mg ER BRIDGE PRN PO .MILD PAIN 1-3 OR TEMP Last administered on 01/02/19at 10:07; Admin Dose 650 MG; Start 01/01/19 at 15:00; Stop 01/02/19 at 14:59 Ampicillin Sodium/ Sulbactam Sodium 100 ml @ 100 mls/hr Q6 IVPB Last administered on 01/02/19at 06:52; Admin Dose 100 MLS/HR; Start 01/01/19 at 18:00 Metronidazole 100 ml @ 100 mls/hr Q8 IVPB Last administered on 01/02/19 05:27; Admin Dose 100 MLS/HR; Start 01/01/19 at 22:00 Sodium Chloride 1,000 ml @ 100 mls/hr Q10H IV Last administered on 01/02/19 05:27; Admin Dose 100 MLS/HR; Start 01/01/19 at 15:31 IV Flush (NS 3 ml) 3 ml PER PROTOCOL IV ; Start 01/01/19 at 16:00 Ondansetron HCl (Zofran Inj) 4 mg Q6H PRN IV NAUSEA/VOMITING Last administered on 01/02/19 02:30; Admin Dose 4 MG; Start 01/01/19 at 16:00 Hydromorphone HCl (Dilaudid) 1 mg Q4H PRN IV .SEVERE PAIN 7-10 Last administered on 01/02/19 06:52; Admin Dose 1 MG; Start 01/01/19 at 16:00 Hydralazine HCl (Apresoline) 10 mg Q6H PRN IV SBP>160; Start 01/01/19 at 16:00 Lorazepam (Ativan) 0.5 mg Q6H PRN IV Anxiety; Start 01/01/19 at 16:00 Polyethylene Glycol (Miralax) 17 gm DAILY PRN PO CONSTIPATION Last administered on 01/02/19 10:05; Admin Dose 17 GM; Start 01/02/19 at 10:00 MEAGAN TURNER NP Jan 02, 2019 10:31
[2019-01-02] MEDS ORDERED: traMADol 50 MG TAB PO PRN (11:00)
[2019-01-02 14:22] VITALS: BP 127/90; PULSE 81; RESP 19
--- NOTE | 2019-01-02 15:30 | CONS ---
DATE OF ADMISSION: 01/01/2019 DATE OF CONSULTATION: 01/02/2019 GENERAL SURGERY INPATIENT CONSULTATION NOTE INDICATION: This is a 38-year-old female who recently underwent a laparoscopic cholecystectomy on , approximately 4 days ago. She presented to an outside hospital and was transferred here fo r definitive care. She was sent here with underlying presumptive diagnosis of small-bowel obstructio n. A CT scan was performed and NG tube was placed. CT scan suggests that there is a small-bowel obs truction; however, there is a minimal amount of fluid collection around the gallbladder and less like ly is a biloma. Some more impressive finding and more overlying finding is probably severe constipat ion. There is stool with extension all the way to the cecum with a significant amount of stool all a round the cecum. Transverse left sigmoid colon. The small bowel appears to be decompressed. This i s more suggestive of constipation from narcotic use. Further conversation with the patient showed th at she has been constipated since the day before surgery and has not taken any laxatives. She had so me nausea and minimal emesis. General surgery was consulted for evaluation and management. In addit ion, she has anxiety. PAST MEDICAL HISTORY: Hypertension, anxiety. PAST SURGICAL HISTORY: Laparoscopic cholecystectomy. SOCIAL HISTORY: Denies any alcohol use and denies any tobacco use or any other recreational drugs. PHYSICAL EXAMINATION: VITAL SIGNS: Temperature 98.4, pulse is 80, respiratory rate is 17, blood pressure 130/80. ABDOMEN: Soft abdomen with distention. LABORATORY DATA: Show white blood cell count is 7.6, hemoglobin is 10, platelets of 235. Electrolyt es appear to be within normal range except for calcium that is low. LFTs appear completely normal, w hich is more suggestive of non-biliary etiology, most likely not a biloma. ASSESSMENT AND PLAN: This is a 38-year-old female with suspected constipation from narcotic use. Th e patient will be started on enemas x2 and cathartics. The patient will be n.p.o. for the duration. NG tube incidentally was removed at bedside as the patient was not tolerating it well and was having a lot of discomfort from it. General surgery will continue to follow. Dictated By: ONI BAINS/MAYDA Conf#: [id number] DID#: [id number]
[2019-01-02] MEDS ORDERED: KETOROLAC 15 MG INJ IV PRN (16:30)
[2019-01-02] MEDS ORDERED: SUMATRIPTAN 6 MG/0.5 ML INJ SC ONE (19:00)
[2019-01-02 20:31] VITALS: BP 141/86; PULSE 72; RESP 16
[2019-01-03] MEDS: AMPICILLIN/SULB 3 GM/NS (PMX) 100 ML IVPB SCH ×5 (00:21→23:39)
[2019-01-03] MEDS: metroNIDAZOLE 500 MG/NS (PMX) 100 ML IVPB SCH ×3 (05:19→21:54)
[2019-01-03] MEDS ORDERED: SUMATRIPTAN 6 MG/0.5 ML INJ SC ONE (06:00)
[2019-01-03] MEDS: SOD CHLORIDE 0.9% 1,000 ML IV SCH ×3 (07:31→17:18)
[2019-01-03 07:38] VITALS: BP 134/79; PULSE 68; RESP 16
--- NOTE | 2019-01-03 11:15 | PDOCDIS ---
Discharge Instructions DIAGNOSIS Discharge Diagnosis Constitutional: alert, oriented Psych: nl mood/affect Head: normocephalic Eyes: nl conjunctiva ENMT: nl external ears & nose, nl lips & teeth Neck: supple Respiratory: clear to auscultation Cardiovascular: other (regular rate ) Gastrointestinal: other (NG tube in place ) Neurological: FREIGHT CLERK II-XII intact, nl mental status, nl speech CONDITION [id number] Patient Condition: [id number] Stable HOME CARE INSTRUCTIONS: [id number] Diet Instructions: [id number] Low Fat /Cholesterol FOLLOW UP/APPOINTMENTS Follow-up Plan Follow up wit Dr. Max Jacobson in one week Office Address [address] [place] [id number] Office MEAGAN TURNER NP Jan 03, 2019 11:15
[2019-01-03 14:31] VITALS: BP 152/87; PULSE 68; RESP 18
--- NOTE | 2019-01-03 17:43 | PN ---
Date/Time of Note Date/Time of Note DATE: 01/03/19 TIME: 17:42 Assessment/Plan VTE Prophylaxis Risk score (from Ns)>0 risk: 1 SCD applied (from Ns): Yes Pharmacological prophylaxis: other Lines/Catheters IV Catheter Type (from Nrsg): Peripheral IV Assessment/Plan Assessment/Plan s/p lap ofelia with constipation now resolving regular diet and dc tomorrow Result Diagram: 01/02/197 01/02/19456 Subjective 24 Hr Interval Summary Free Text/Dictation having loose bowel movements Exam/Review of Systems Exam Vitals Vital Signs Date Temp Pulse Resp B/P (MAP) Pulse Ox O2 O2 Flow FiO2 Time Delivery Rate 01/03/19 99.2 68 18 152/87 99 14:31 (108) 01/02/19 Room Air 02:15 Intake and Output 01/02/19 01/02/19 01/03/19 1515:00 23:00 07:00 IntakeIntake Total 200 ml 1820 ml 900 ml BalanceBalance 200 ml 1820 ml 900 ml Exam c/d/i Medications Medication Current Medications Ampicillin Sodium/ Sulbactam Sodium 100 ml @ 100 mls/hr Q6 IVPB Last administered on 01/03/19at 12:02; Admin Dose 100 MLS/HR; Start 01/01/19 at 18:00 Metronidazole 100 ml @ 100 mls/hr Q8 IVPB Last administered on 01/03/19at 14:17; Admin Dose 100 MLS/HR; Start 01/01/19 at 22:00 Sodium Chloride 1,000 ml @ 100 mls/hr Q10H IV Last administered on 01/03/19at 11:35; Admin Dose 100 MLS/HR; Start 01/01/19 at 15:31 IV Flush (NS 3 ml) 3 ml PER PROTOCOL IV ; Start 01/01/19 at 16:00 Ondansetron HCl (Zofran Inj) 4 mg Q6H PRN IV NAUSEA/VOMITING Last administered on 01/02/19at 10:48; Admin Dose 4 MG; Start 01/01/19 at 16:00 Hydralazine HCl (Apresoline) 10 mg Q6H PRN IV SBP>160; Start 01/01/19 at 16:00 Lorazepam (Ativan) 0.5 mg Q6H PRN IV Anxiety; Start 01/01/19 at 16:00 Polyethylene Glycol (Miralax) 17 gm DAILY PRN PO CONSTIPATION Last administered on 01/02/19at 10:05; Admin Dose 17 GM; Start 01/02/19 at 10:00 Tramadol HCl (Ultram) 50 mg Q6H PRN PO MODERATE PAIN LEVEL 4-6; Start 01/02/19 at 11:00 Ketorolac Tromethamine (Toradol) 15 mg Q6H PRN IV PAIN Last administered on 01/02/19at 16:10; Admin Dose 15 MG; Start 01/02/19 at 16:30; Stop 01/05/19 at 16:29 Dane HERNANDEZ Jan 03, 2019 17:43
[2019-01-03 19:51] VITALS: BP 135/84; PULSE 73; RESP 18
[2019-01-03] MEDS ORDERED: ZOLPIDEM 5 MG TAB PO PRN (21:00)
--- NOTE | 2019-01-03 21:41 | PN ---
Date/Time of Note Date/Time of Note DATE: 01/03/19 TIME: 21:39 Assessment/Plan VTE Prophylaxis Risk score (from Nsg)>0 risk: 1 SCD applied (from Nsg): Yes Pharmacological prophylaxis: NA/contraindicated Pharm contraindication: low risk/ambulating Lines/Catheters IV Catheter Type (from Nrsg): Peripheral IV Assessment/Plan Hospital Course Assessment and plan #Abdominal pain CT scan suggesting SBO Patient seen with NG tube in place NG tube was d/c Advance diet as tolerated Continue IV fluids Continue analgesics #Essential hypertension Will provide with antihypertensives as needed #Anxiety Continue with anxiolytics as needed Disposition and plan. continue on diet. monitor patient for improvement. d/c within the next 24 hours Discussed POC with Dr. Campos Result Diagram: 01/02/1945601/02/19456 Subjective 24 Hr Interval Summary Free Text/Dictation patient seen in the afternoon. reports less pain. Exam/Review of Systems Exam Vitals Vital Signs Date Temp Pulse Resp B/P (MAP) Pulse Ox O2 O2 Flow FiO2 Time Delivery Rate 01/03/19 99.3 73 18 135/84 100 19:51 (101) 01/02/19 Room Air 02:15 Intake and Output 01/02/19 01/02/19 01/03/19 1515:00 23:00 07:00 IntakeIntake Total 200 ml 1820 ml 900 ml BalanceBalance 200 ml 1820 ml 900 ml Constitutional: alert, oriented, obese Head: normocephalic Eyes: nl conjunctiva Neck: supple, non-tender Respiratory: clear to auscultation Cardiovascular: other (regular rate ) Gastrointestinal: soft, bowel sounds (active during interview ) Neurological: SAUSAGE LINKER II-XII intact, nl mental status, nl speech Skin: nl turgor Medications Medication Current Medications Ampicillin Sodium/ Sulbactam Sodium 100 ml @ 100 mls/hr Q6 IVPB Last administered on 01/03/19at 18:11; Admin Dose 100 MLS/HR; Start 01/01/19 at 18:00 Metronidazole 100 ml @ 100 mls/hr Q8 IVPB Last administered on 01/03/19at 14:17; Admin Dose 100 MLS/HR; Start 01/01/19 at 22:00 Sodium Chloride 1,000 ml @ 100 mls/hr Q10H IV Last administered on 01/03/19at 1 1:35; Admin Dose 100 MLS/HR; Start 01/01/19 at 15:31 IV Flush (NS 3 ml) 3 ml PER PROTOCOL IV ; Start 01/01/19 at 16:00 Ondansetron HCl (Zofran Inj) 4 mg Q6H PRN IV NAUSEA/VOMITING Last administered on 01/02/19at 10:48; Admin Dose 4 MG; Start 01/01/19 at 16:00 Hydralazine HCl (Apresoline) 10 mg Q6H PRN IV SBP>160; Start 01/01/19 at 16:00 Lorazepam (Ativan) 0.5 mg Q6H PRN IV Anxiety; Start 01/01/19 at 16:00 Polyethylene Glycol (Miralax) 17 gm DAILY PRN PO CONSTIPATION Last administered on 01/02/19at 10:05; Admin Dose 17 GM; Start 01/02/19 at 10:00 Tramadol HCl (Ultram) 50 mg Q6H PRN PO MODERATE PAIN LEVEL 4-6; Start 01/02/19 at 11:00 Ketorolac Tromethamine (Toradol) 15 mg Q6H PRN IV PAIN Last administered on 01/02/19at 16:10; Admin Dose 15 MG; Start 01/02/19 at 16:30; Stop 01/05/19 at 16: 29 Zolpidem Tartrate (Ambien) 5 mg ONCE PRN PO INSOMNIA Last administered on 01/03/19at 21:10; Admin Dose 5 MG; Start 01/03/19 at 21:00; Stop 01/04/19 at 20:59 MEAGAN TURNER NP Jan 03, 2019 21:41
[2019-01-04 01:30] VITALS: BP 139/82; PULSE 71; RESP 20
[2019-01-04] MEDS: SOD CHLORIDE 0.9% 1,000 ML IV SCH ×2 (02:49→13:31)
[2019-01-04] MEDS: metroNIDAZOLE 500 MG/NS (PMX) 100 ML IVPB SCH ×2 (05:16→14:40)
[2019-01-04] MEDS: AMPICILLIN/SULB 3 GM/NS (PMX) 100 ML IVPB SCH ×2 (06:17→14:45)
[2019-01-04 08:56] VITALS: BP 129/82; PULSE 76; RESP 16
[2019-01-04] MEDS ORDERED: POTASSIUM CHLORIDE (SR) 20 MEQ TAB PO STA (09:04)
[2019-01-04] MEDS: ONDANSETRON 4 MG INJ IV PRN (09:32)
--- NOTE | 2019-01-04 11:39 | DS ---
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 She was discharged home however when she was discharged home started to have some abdominal pain and reported not having a bowel movement. As such she went to the hospital. She initially went to [facility] emergency room and was diagnosed with SBO and transferred to [facility] due to insurance issue. She was again reconsulted by surgeon. She was placed with NG tube. We also kept her n.p.o. and provided her with IV fluids. As for his pain subsided we did DC the NG tube and she was started on liquid diet. She did tolerate well. We advance her diet as tolerated. She was provided with appropriate analgesics as needed. During the course of stay she did improve. She did tolerate a regular diet well. She was advised outpatient follow-up with surgeon upon DC. She was otherwise otherwise medically with antihypertensives for high blood pressure and anxiolytics as needed for anxiety. The plan of care was discussed with the patient and she verbalized understanding. On the day of discharge patient was in stable condition Discussed POC with Dr. [facility] Active Scripts Ondansetron Hcl* (Zofran*) 8 Mg Tablet, 8 MG PO Q6H PRN for NAUSEA AND OR VOMITING, #30 TAB Prov:MEAGAN TURNER NP 01/04/19 Sennosides* (Senna Lax*) 8.6 Mg Tablet, 1 TAB PO Q12H PRN for CONSTIPATION, #30 TAB Prov:MEAGAN TURNER NP 01/03/19 Docusate Sodium* (Colace*) 100 Mg Capsule, 100 MG PO BID, #30 CAP Prov:MEAGAN TURNER [employer] 01/03/19 Reported Medications Trazodone Hcl* (Desyrel*) 100 Mg Tab, 150 MG ORAL QHS 12/29/18 Fluoxetine Hcl* (Fluoxetine Hcl*) 20 Mg Capsule, 1 CAP ORAL DAILY 12/29/18 Lorazepam* (Lorazepam*) 0.5 Mg Tablet, 1 TAB ORAL QHS PRN for ANXIETY 12/29/18 Amlodipine Besylate* (Amlodipine Besylate*) 5 Mg Tablet, 1 TAB ORAL DAILY 12/29/18 Losartan Potassium* (Losartan Potassium*) 100 Mg Tablet, 100 MG PO DAILY, TAB 03/18/17 Metoprolol Tartrate* (Lopressor*) 50 Mg Tab, 50 MG PO BID for HTN, #60 TAB 03/18/17 Discontinued Reported Medications Hydrochlorothiazide* (Hydrochlorothiazide*) 25 Mg Tab, 25 MG PO DAILY, #30 TAB 03/18/17 Hydrocodone/Acetaminophen ([place] 5-325 Tablet) 1 Each Tablet, 1 EACH PO, TAB 03/18/17 Amlodipine Besylate* (Amlodipine Besylate*) 2.5 Mg Tablet, 2.5 MG PO DAILY, #30 TAB 03/18/17 Lorazepam* (Lorazepam*) 1 Mg Tablet, 1 MG PO Q8 PRN for ANXIETY, #60 TAB 03/18/17 Discontinued Scripts Lorazepam* (Lorazepam*) 1 Mg Tablet, 1 MG PO Q8H PRN for ANXIETY, #10 TAB Prov:IRMA ERICKSON DO 03/18/17 Follow-up Plan Follow up wit Dr. Max Jacobson in one week Office Address [address] [place] [id number] Office Primary Care Provider [facility] Time spent on discharge: > 30 minutes Pending Labs Laboratory Tests Test 01/04/19 05:47 White Blood Count 7.0 10^3/ul (4.8-10.8) Red Blood Count 3.56 10^6/ul (4.20-5.40) Hemoglobin 9.4 g/dl (12.0-16.0) Hematocrit 29.6 % (37.0-47.0) Mean Corpuscular Volume 83.1 fl (82.0-101.0) Mean Corpuscular Hemoglobin 26.4 pg (29.0-33.0) Mean Corpuscular Hemoglobin Concent 31.8 g/dl (32.0-37.0) Red Cell Distribution Width 15.0 % (11.5-14.5) Platelet Count 248 10^3/UL (140-415) Mean Platelet Volume 10.4 fl (7.4-10.4) Immature Granulocytes % 0.900 % (0.001-0.429) Neutrophils % 69.5 % (39.0-77.0) Lymphocytes % 18.8 % (15.0-51.0) Monocytes % 7.2 % (0.0-11.0) Eosinophils % 3.2 % (0.0-7.0) Basophils % 0.4 % (0.0-2.0) Nucleated Red Blood Cells % 0.0 /100WBC (0.0-0.0) Immature Granulocytes # 0.060 10^3/ul (0.0-0.031) Neutrophils # 4.8 10^3/ul (1.6-7.5) Lymphocytes # 1.3 10^3/ul (0.8-2.9) Monocytes # 0.5 10^3/ul (0.3-0.9) Eosinophils # 0.2 10^3/ul (0.0-0.5) Basophils # 0.0 10^3/ul (0.0-0.1) Nucleated Red Blood Cells # 0.0 10^3/ul (0.0-0.0) Sodium Level 139 mmol/L (135-144) Potassium Level 3.4 mmol/L (3.5-5.1) Chloride Level 105 mmol/L (97-110) Carbon Dioxide Level 28 mmol/L (21-31) Anion Gap 6 (5-13) Blood Urea Nitrogen 8 mg/dl (7-20) Creatinine 0.58 mg/dl (0.44-1.00) Est Glomerular Filtrat Rate mL/min > 60 mL/min (>60) Glucose Level 108 mg/dl (70-220) Calcium Level 8.3 mg/dl (8.4-10.2) MEAGAN TURNER NP Jan 04, 2019 11:39
[2019-01-04 14:12] VITALS: BP 134/89; PULSE 75; RESP 16
== END 2019-01-04 17:15 | disposition home or self-care (01) | DRG 390 ==
LOC: E/R 14:20 → 2NE 14:36
PROVIDERS: ADMIT Internal Medicine; ATTEND Internal Medicine
DX: K56.609 Unspecified intestinal obstruction, unspecified as to partial versus complete obstruction (principal); I10 Essential (primary) hypertension; F41.9 Anxiety disorder, unspecified; K59.03 Drug induced constipation
CPT/HCPCS: 80048; 80053; 83036; 83605; 83735; 84100; 84703; 85025; 85610; 85730; J0295; J0360; J1170; J1885; J2405; J3030; J7030